=== PATIENT | female | born 1955 | race Caucasian/White ===

== ENCOUNTER 2016-11-07 11:22 | Emergency (ER) | payer OTHER ==
[2016-11-07 11:30] VITALS: TEMP 98.2
--- NOTE | 2016-11-07 11:41 | EDPHY ---
H & P Time Seen by Provider: 11/07/16 11:23 HPI/ROS: HPI Left wrist injury, head injury. 61-year-old female by private vehicle with her . She and her are on a backpacking trip. They were back packing and coming down a hill when she slipped and fell forward. She reports she landed on her forehead and an outstretched left wrist. She complains of abrasions to her forehead and nose as well as deformity and pain to the left wrist. She is right-hand dominant. She denies any neck pain. There was no loss of consciousness. No other extremity pain. No weakness or loss of sensation in her extremities. No shortness of breath or abdominal pain. No other complaints. She is not on any antiplatelet or anticoagulant medications. ROS: Constitutional: No fever, no chills. No weakness. Eyes: No discharge. No changes in vision. ENT: No sore throat. No nasal congestion or rhinorrhea. Respiratory: No cough. No shortness of breath. Cardiac: No chest pain, no palpitations. Gastrointestinal: No abdominal pain, no vomiting, no diarrhea. Genitourinary: No hematuria. No dysuria or increased frequency with urination. Musculoskeletal: No back pain. No neck pain. As above. Skin: No rashes. Neurological: No headache. No focal weakness or altered sensation. Past medical history: Hypothyroid. Social history: Nonsmoker. Here with her . No alcohol. Physical Exam: General Appearance: Alert, no distress. This patient is responding to questions appropriately and in full sentences. This patient appears well- hydrated and well-nourished. Head: Normocephalic atraumatic except for a superficial abrasion to the mid forehead. Face: Facial bones are stable on palpation. She has a superficial abrasion from the bridge of her nose to the distal aspect of the nose midline. No suturable laceration. The nasal bones are stable on palpation without crepitus , deformity or movement. Eyes: Pupils equal and round and reactive to light, no pallor or injection. No lid erythema or edema. ENT, Mouth: Mucous membranes moist. Dentition is intact. No malocclusion of the jaw. No tongue lacerations or abrasions. Pharynx is clear. The bilateral nasal canals are clear. No septal hematoma. Respiratory: There are no retractions, lungs are clear to auscultation with good air movement bilaterally. Chest wall is stable to AP and lateral palpation. Cardiovascular: Regular rate and rhythm. No murmur. Gastrointestinal: Abdomen is soft and nontender, no masses, bowel sounds normal. Neurological: Motor sensory function is intact. Cranial nerves are normal. Cerebellar function intact. Skin: Warm and dry, no rashes. No lacerations, abrasions or contusions. Musculoskeletal: Neck is supple and nontender. The trachea is midline. No midline cervical, thoracic, lumbar or sacral tenderness on palpation. No flank tenderness on palpation. Left upper extremity exam significant for a dinner fork deformity. Superficial abrasions to the ventral aspect of the left distal wrist. I do not appreciate any open laceration or evidence of an open fracture. She has strong pulses in the distal radial and ulnar arteries. Capillary refill in all digits is normal. Sensation and motor function in all myotomes in dermatomes of the hand digits normal. The left hand is neurovascularly intact. The left elbow and left shoulder joints range without any significant pain or impingement. Extremities are symmetrical, full range of motion except noted. All joints in the bilateral upper and bilateral lower extremities range without pain or impingement except noted. No tenderness on palpation of the long bones in the bilateral upper and bilateral lower extremities except noted. Psychiatric: No agitation. No depression. Database: EKG: Imaging: CT head without contrast: And . Early atrophy. Otherwise no acute pathology. Results were discussed with staff radiologist Dr. Phil Oates. Left wrist x-ray series: Significant for Colles fracture of the distal radius as well as an ulnar styloid fracture. Interpreted by me. Left wrist x-ray series post reduction: As above. Interpreted by me. Procedures: Procedure: Splint placement. A ortho glass sugar-tong splint was applied. After application of the splint I returned and re-examined the patient. The splint was adequately immobilizing the joint and distal to the splint the patient's circulation and sensation was intact. Procedure: Dislocation reduction. The left wrist Colles fracture was reduced in the usual fashion without complications. Hematoma block was performed with 0.5% bupivacaine without epinephrine. Post reduction the patient's neurovascular exam is normal. Post reduction x-ray demonstrates partial reduction of the joint to the anatomic position. The procedure was performed by myself. Emergency department course: Patient received 800 mg of ibuprofen on a trail. She is declining any further pain medication. Imaging as above ordered. 12:30 p.m., reduction of Colles fracture as above. Results of CT head without contrast discussed with patient. 1:25 p.m., patient re-evaluated. Resting comfortably at this time. Discussed my conversation with Dr. Ishan Guidry orthopedist. Plan for follow-up tomorrow morning in Dr. Guidry's reviewed. Left upper extremity is neurovascularly intact. Return to emergency department precautions discussed. Head injury precautions reviewed. She feels comfortable going home with her . I will prescribe her Vicodin for pain. She understands for follow- up. All of her questions were answered. She was discharged in good condition with her . Differential Diagnosis: The differential diagnosis on this patient includes but is not limited to left wrist Colles fracture. Traumatic brain injury, cervical spine injury, nasal fracture, other facial fracture, other significant traumatic injury the noted unlikely. This represents a partial list of diagnoses considered. These considerations are based on history, physical exam, past history, reassessment and diagnostic testing. Smoking Status: Never smoked Constitutional: Initial Vital Signs Temperature (C) 36.8 C 11/07/16 11:23 Heart Rate 83 11/07/16 11:23 Respiratory Rate 18 11/07/16 11:23 Blood Pressure 144/84 H 11/07/16 11:23 O2 Sat (%) 96 11/07/16 11:23 O2 Delivery Mode Room Air Allergies/Adverse Reactions: No Known Allergies Allergy (Unverified 07/13/15 08:58) Home Medications: Medication Instructions Recorded Hydrocodone/APAP 5/325 [[place] 1 - 2 tab PO Q4-6PRN PRN #20 tab 11/07/16 5/325 (*)] Medical Decision Making - Diagnostics Imaging Results: Imaging Impressions Head CT 11/07/16 11:35 Impression: There is no acute intracranial abnormality identified on this unenhanced CT evaluation. If there is further clinical concern regarding the patient's symptoms, MR imaging is suggested, if not otherwise contraindicated. Findings were discussed with Kwame Menchaca MD at 11:56, on 11/07/2016. Wrist X-Ray 11/07/16 11:35 Impression: Acute Colles' fracture of the distal radius with an associated ulnar styloid fracture. Wrist X-Ray 11/07/16 12:51 Impression: Status post closed reduction and interval casting for a Colles' fracture and an ulnar styloid fracture. Departure - Departure Disposition: Home, Routine, Self-Care Clinical Impression: Colles' fracture of left radius, Head injury Condition: Good Instructions: Wrist Fracture in Adults (ED), Head Injury (ED) Additional Instructions: Read and follow provided instructions. Follow-up with Dr. Guidry, tool specialist, tomorrow morning in his office for re-evaluation and further management. Call his office at 9:00 a.m. for appointment time. [place]/Percocet dosin-2 every 4-6 [address] for [address] Do not drive on this medication. Keep the splint in place until seen by Dr. Guidry in the office tomorrow. Return to the emergency department for worsening pain, discoloration, loss of sensation in your hand, swelling or other serious concerns. Referrals: Ishan Guidry MD [Medical Doctor] - As per Instructions Prescriptions: Hydrocodone/APAP 5/325 [[place] 5/325 (*)] 1 - 2 tab PO Q4-6PRN PRN #20 tab PRN Reason: Pain, Moderate
[2016-11-07 13:33] VITALS: BP 128/79; PULSE 80; RESP 16; O2SAT 94
== END 2016-11-07 13:32 | disposition home or self-care (01) ==
LOC: CED 11:22
PROC: 2W39X1Z Immobilization of Left Upper Extremity using Splint (ICD-10-PCS; principal; 2016-11-07)
DX: S52.532A Colles' fracture of left radius, initial encounter for closed fracture (principal); S09.90XA Unspecified injury of head, initial encounter; W01.198A Fall on same level from slipping, tripping and stumbling with subsequent striking against other object, initial encounter
CPT/HCPCS: 70450-PO; 73110-PO; A4565

== ENCOUNTER → 2017-06-02 | Outpatient (CLI) | payer OTHER | LOC: BRMIMAGING 08:33 | PROVIDERS: ATTEND Internal Medicine | DX: Z13.820 Encounter for screening for osteoporosis (principal); M85.89 Other specified disorders of bone density and structure, multiple sites; Z78.0 Asymptomatic menopausal state ==